=== PATIENT | male | born 1985 | race African-American/Black ===

== ENCOUNTER 2017-01-05 14:26 | Emergency (ER) | payer OTHER ==
[~2017-01-05 14:26] MED LIST: ABILIFY5 MG PO; AMLODIPINE BESYL5 MG PO; ASPIR-TRIN325 MG PO; CATAPRES0.1 MG PO; IBUPROFEN800 MG PO; LISINOPRIL-HCTZ1 T15 PO; PANTOPRAZOLE SO40 MG PO; QUETIAPINE FUM300 MG PO; VICODIN ES 7.51 EACH PO
== END 2017-01-05 14:36 | disposition home or self-care (01) ==
LOC: CFTX 14:26
DX: L02.414 Cutaneous abscess of left upper limb (principal); I10 Essential (primary) hypertension; F17.210 Nicotine dependence, cigarettes, uncomplicated; Z79.899 Other long term (current) drug therapy
CPT/HCPCS: 10060; 99283

== ENCOUNTER 2017-01-08 15:33 | Emergency (ER) | payer OTHER | END 2017-01-08 16:52 | disposition home or self-care (01) | LOC: CFTX 15:33 | DX: L02.414 Cutaneous abscess of left upper limb (principal); I10 Essential (primary) hypertension; F17.210 Nicotine dependence, cigarettes, uncomplicated | CPT/HCPCS: 99281 ==